=== PATIENT | male | born 1995 | race Caucasian/White ===

== ENCOUNTER 2016-06-12 03:54 | Emergency (ER) | payer MEDICAID, OTHER ==
[~2016-06-12] VITALS: Ht 165.1 cm; Wt 61.2 kg
--- NOTE | 2016-06-12 03:54 | NUR ---
Patient was BIBA and taken to bed 08 via gurney per EMS.
[2016-06-12 04:03] VITALS: BP 121/74
--- NOTE | 2016-06-12 04:21 | NUR ---
20 Y/O BIBA W/C/O Abd pain, epigastric pain, n/v since 1999 after eating [employer] food. NO S/S OF DISTRESS NOTED AT THE MOMENT. PT ON MONITOR, WILL CONT TO MONITOR. ER MADE AWARE.
--- NOTE | 2016-06-12 04:35 | NUR ---
Dr. Emery evaluating patient at bedside.
[2016-06-12] MEDS ORDERED: DICYCLOMINE HCL LIQUID 20 MG, ALUMINUM HYD/MAG/SIMETHICONE 30 ML, LIDOCAINE VISCOUS 2% ... PO ONE (04:50)
[2016-06-12] MEDS ORDERED: ONDANSETRON 4 MG/2 ML VIAL IVP ONE (04:50)
[2016-06-12] MEDS ORDERED: NACL 0.9% 1,000 ML IV ONE (04:50)
[2016-06-12] MEDS ORDERED: LIDOCAINE VISCOUS 2% 20 ML UDC ONE ×2 (04:55→04:57)
[2016-06-12 05:58] VITALS: BP 104/57
--- NOTE | 2016-06-12 05:58 | NUR ---
Patient discharged with v/s stable. Written and verbal after care instructions given and explained. Patient alert, oriented and verbalized understanding of instructions. Ambulatory with steady gait. All questions addressed prior to discharge. ID band removed. Patient advised to follow up with PMD NEXT WK OR RETURN TO ER IF CONDITION WORSENS. Rx of ZOFRAN AND MYLANTA given. Patient educated on indication of medication including possible reaction and side effects. Opportunity to ask questions provided and answered.
== END 2016-06-12 05:58 | disposition home or self-care (01) ==
LOC: MED 03:54
DX: R10.10 Upper abdominal pain, unspecified (principal); R11.2 Nausea with vomiting, unspecified
CPT/HCPCS: 36415; 80053; 83690; 96361; 96374; 99284; J2405; J7030

== ENCOUNTER 2017-06-29 16:18 | Emergency (ER) | payer OTHER ==
[~2017-06-29] VITALS: Ht 165.1 cm; Wt 58.5 kg
[2017-06-29 16:30] VITALS: BP 111/69
[2017-06-29 17:35] VITALS: BP 110/67
== END 2017-06-29 17:35 | disposition home or self-care (01) ==
LOC: MED 16:18
DX: B34.9 Viral infection, unspecified (principal); F17.200 Nicotine dependence, unspecified, uncomplicated
CPT/HCPCS: 99283

== ENCOUNTER 2017-09-10 17:33 | Emergency (ER) | payer OTHER ==
[~2017-09-10] VITALS: Ht 152.4 cm; Wt 56.7 kg
[2017-09-10 17:42] VITALS: BP 134/81
--- NOTE | 2017-09-10 17:49 | NUR ---
PT TAKEN TO BED 3.
--- NOTE | 2017-09-10 17:50 | NUR ---
REPORT GIVEN TO DEVIKA PITTS.
--- NOTE | 2017-09-10 18:00 | NUR ---
PT. CAME INTO THE ED W/ ABD PAIN SINCE YESTERDAY. PT. STATES " I STARTED HAVING STOMACH PAIN SINCE YESTERDAY, I THREW UP ONCE AND I HAVE BEEN NAUSEOUS, IT COMES AND GOES". PT. IS AAOX4, RR EVEN AND UNLABORED, PT. DENIES SOB, DENIES FEVER AND CHILLS, DENIES DIAHRRHEA. PT. HAS 8/10 PAIN IN EPIGASTRIC AREA THAT IS SHARP AND RADIATES ALL OVER ABD. ABD IS FLAT AND SOFT. ER MD NOTIFIED. WILL CONTINUE TO MONITOR.
[2017-09-10] MEDS ORDERED: NACL 0.9% 1,000 ML IV SCH (18:28)
[2017-09-10] MEDS ORDERED: MORPHINE SULFATE 4 MG/ML SYR IVP ONE (18:30)
[2017-09-10 18:43] LABS: BASOPHILS % (AUTO) 0.2 % (0.0-2.0); EOSINOPHILS % (AUTO) 0.1 % (0.0-4.0); HEMATOCRIT 46.9 % (36-52); HEMOGLOBIN 15.8 g/dL (12.0-18.0); LYMPHOCYTES # (AUTO) 0.5 K/uL (2.0-11.5); LYMPHOCYTES % (AUTO) 6.3 % (20.5-51.1); MEAN CORPUSCULAR HEMOGLOBIN 29 pg (27-31); MEAN CORPUSCULAR HGB CONC 34 g/dL (33-37); MEAN CORPUSCULAR VOLUME 86.2 fL (80-94); MONOCYTES # (AUTO) 0.7 K/uL (0.8-1.0); MONOCYTES % (AUTO) 8.8 % (1.7-9.3); NEUTROPHILS # (AUTO) 6.4 K/uL (1.8-7.7); NEUTROPHILS % (AUTO) 84.6 % (42.2-75.2); PLATELET COUNT (AUTO) 190 K/uL (140-450); RED BLOOD CELL COUNT(AUTO) 5.44 MIL/uL (4.20-6.10); RED CELL DISTRIBUTION WIDTH 12.4 % (11.6-13.7); WHITE BLOOD COUNT (AUTO) 7.6 K/uL (4.8-10.8)
[2017-09-10 18:57] LABS: ANION GAP 1.9 (8-16); CARBON DIOXIDE 38.8 mmol/L (21-32); POTASSIUM 3.7 mmol/L (3.5-5.1)
[2017-09-10 19:03] LABS: ALBUMIN 4.5 g/dL (3.4-5.0); TOTAL BILIRUBIN 0.9 mg/dL (0.0-1.0)
--- NOTE | 2017-09-10 19:12 | NUR ---
Pt report given to GISSELLE KULKARNI. Transfer of care at this time.
--- NOTE | 2017-09-10 19:35 | NUR ---
PT RESTING COMFORTABLY IN BED, PT REPORTS DECREASED PAIN 2/10 AT THIS TIME, DENIES N/V. ALL NEEDS MET AT THIS TIME.
--- NOTE | 2017-09-10 20:35 | NUR ---
Dr. Aguirre evaluating patient at bedside.
[2017-09-10 20:59] LABS: APPEARANCE,URINE CLEAR (CLEAR); BLOOD, URINE NEGATIVE (NEGATIVE); COLOR,URINE YELLOW (YELLOW); LEUKOCYTE ESTERASE ,URINE NEGATIVE (NEGATIVE); NITRITE, URINE NEGATIVE (NEGATIVE); PH,URINE 5.5 (5.0-9.0); UGLUCOSE NEGATIVE (NEGATIVE)
[2017-09-10 21:01] LABS: BILIRUBIN,URINE NEGATIVE (NEGATIVE)
[2017-09-10 21:47] VITALS: BP 102/66
--- NOTE | 2017-09-10 21:47 | NUR ---
Patient discharged with v/s stable. Written and verbal after care instructions given and explained. Patient alert, oriented and verbalized understanding of instructions. Ambulatory with steady gait. All questions addressed prior to discharge. ID band removed. Patient advised to follow up with PMD. Rx of REGLAN, OMEPRAZOLE given. Patient educated on indication of medication including possible reaction and side effects. Opportunity to ask questions provided and answered.
== END 2017-09-10 21:47 | disposition home or self-care (01) ==
LOC: MED 17:33
DX: K29.70 Gastritis, unspecified, without bleeding (principal); R63.0 Anorexia
CPT/HCPCS: 36415; 74176; 80053; 81003; 82150; 83690; 85025; 96361; 96374; 99285; J2270

== ENCOUNTER 2018-07-30 09:40 | Emergency (ER) | payer OTHER ==
[~2018-07-30] VITALS: Ht 167.6 cm; Wt 65.8 kg
[2018-07-30 09:51] VITALS: BP 150/73
--- NOTE | 2018-07-30 09:55 | NUR ---
PATIENT PRESENTS TO ED WITH C/O HEADACHE/SORETHROAT/CHILLS WITH NO FEVER. PT ADMITS TO SMOKING MARIJUANA DAILY. PT TOOK IBUPROFEN LAST NIGHT. PAIN 8/10 PT DENIES N/V/D; SKIN IS PINK/WARM/DRY; AAOX4 WITH EVEN AND STEADY GAIT; LUNGS CTAB. PATIENT POSITIONED FOR COMFORT; HOB ELEVATED; BEDRAILS UP X2; BED DOWN. ER MD TO EVALUATE PT.
--- NOTE | 2018-07-30 10:13 | NUR ---
DR GREEN AT BEDSIDE FOR PT EVALUATION
--- NOTE | 2018-07-30 10:17 | NUR ---
Domingo emerson in [facility], [place] - 07/30/18 at [address] GREEN AT [facility] FOR PT EVALUATION
[2018-07-30] MEDS ORDERED: KETOROLAC 30 MG/ML VIAL IM ONE (10:20)
--- NOTE | 2018-07-30 10:21 | NUR ---
STREP SWAB COLLECTED AND HANDED TO LAB
--- NOTE | 2018-07-30 10:23 | NUR ---
PT GIVEN IM MEDICATION ORDERED. IM MEDICATION GIVEN TO R DELTOID. PT TOLERATED WELL.
[2018-07-30 11:13] VITALS: BP 117/68
--- NOTE | 2018-07-30 11:13 | NUR ---
Patient discharged with v/s stable. Written and verbal after care instructions given and explained. Patient alert, oriented and verbalized understanding of instructions. Ambulatory with steady gait. All questions addressed prior to discharge. ID band removed. Patient advised to follow up with PMD. Rx of Naprosyn, Tylenol with Codeine no. 3 given. Patient educated on indication of medication including possible reaction and side effects. Opportunity to ask questions provided and answered.
== END 2018-07-30 11:13 | disposition home or self-care (01) ==
LOC: MED 09:40
DX: J02.8 Acute pharyngitis due to other specified organisms (principal); B97.89 Other viral agents as the cause of diseases classified elsewhere; E11.9 Type 2 diabetes mellitus without complications; F17.200 Nicotine dependence, unspecified, uncomplicated
CPT/HCPCS: 87081; 96372; 99283; J1885

== ENCOUNTER 2020-11-09 13:55 | Emergency (ER) | payer OTHER, SELFPAY ==
[~2020-11-09] VITALS: Ht 167.6 cm; Wt 61.2 kg
[2020-11-09 14:10] VITALS: BP 119/68
--- NOTE | 2020-11-09 15:00 | NUR ---
CAME OUT TO COVID TO COVID SWAB THE PATIENT AND NO ONE IN THE TENT. PT LEFT WITHOUT DISCHARGE INSTRUCTIONS OR WITHOUT BEING SWABBED. DR. GLOVER MADE AWARE.
--- NOTE | 2020-11-09 15:00 | NUR ---
ELOPED FROM FACILITY. LEFT WITH OUT DISCHARGE INSTRUCTIONS.
== END 2020-11-09 15:00 | disposition left against medical advice (07) ==
LOC: MED 13:55
DX: R05 Cough (principal); Z20.822 Contact with and (suspected) exposure to COVID-19; E11.9 Type 2 diabetes mellitus without complications
CPT/HCPCS: 99281

== ENCOUNTER 2022-06-11 03:35 | Emergency (ER) | payer OTHER ==
[~2022-06-11] VITALS: Ht 165.1 cm; Wt 62.6 kg
[2022-06-11 03:48] VITALS: BP 134/80
--- NOTE | 2022-06-11 03:51 | NUR ---
TO BED AMBULATORY
--- NOTE | 2022-06-11 03:58 | NUR ---
26YR OLD MALE BIB SELF C/O MID GASTRIC ABD PAIN. PAIN STARTED 2AM. PAIN LEVEL 8/10 SHARP. DENIES CP SOB V/N/D. PT IS A&OX4. HX OF ACID REFLEX. SKIN IS WARM AND DRY. NKDA NO MED HX
[2022-06-11] MEDS ORDERED: ALUMINUM HYD/MAG/SIMETHICONE 30 ML UDC PO ONE (04:05)
[2022-06-11] MEDS ORDERED: FAMOTIDINE 20 MG TAB PO ONE (04:05)
[2022-06-11] MEDS ORDERED: FAMO-90 PO (04:52)
== END 2022-06-11 04:55 | disposition home or self-care (01) ==
LOC: MED 03:35
DX: K21.9 Gastro-esophageal reflux disease without esophagitis (principal); Z79.899 Other long term (current) drug therapy
CPT/HCPCS: 99283

== ENCOUNTER 2022-07-13 09:34 | Emergency (ER) | payer OTHER ==
[~2022-07-13] VITALS: Ht 167.6 cm; Wt 59.0 kg
[~2022-07-13 09:34] MED LIST: FAMO-90 PO
[2022-07-13 09:40] VITALS: BP 148/74
[2022-07-13] MEDS ORDERED: KETOROLAC 30 MG/ML VIAL IM ONE (12:10)
[2022-07-13] MEDS ORDERED: NAPR-54 PO (12:57)
--- NOTE | 2022-07-13 13:29 | NUR ---
toradol relieved pain now 04/23, pt given aci for right sprained ankle, rx naproxyen explained, questions answered. steady gait home. with return demo of crutches
[2022-07-13 13:31] VITALS: BP 110/62
== END 2022-07-13 13:31 | disposition home or self-care (01) ==
LOC: MED 09:34
DX: S93.602A Unspecified sprain of left foot, initial encounter (principal); E11.9 Type 2 diabetes mellitus without complications; K21.9 Gastro-esophageal reflux disease without esophagitis; Z79.899 Other long term (current) drug therapy; X58.XXXA Exposure to other specified factors, initial encounter; Y93.89 Activity, other specified; Y92.89 Other specified places as the place of occurrence of the external cause; Y99.8 Other external cause status
CPT/HCPCS: 73630; 96372; 99283; J1885

== ENCOUNTER 2022-07-16 18:44 | Emergency (ER) | payer OTHER ==
[~2022-07-16] VITALS: Ht 167.6 cm; Wt 59.0 kg
[~2022-07-16 18:44] MED LIST changes: +NAPR-54 PO
[2022-07-16 19:54] VITALS: BP 113/80
[2022-07-16] MEDS ORDERED: HYDROcodone/APAP 5/325 MG 1 TAB TAB PO ONE (22:25)
--- NOTE | 2022-07-16 22:26 | NUR ---
PATIENT LEFT WITHOUT BEING SEEN BY DR. Coe. NO FURTHER CARE PROVIDED FOR PATIENT.
--- NOTE | 2022-07-16 22:26 | NUR ---
Called no show in lobby or outside.
== END 2022-07-16 22:26 | disposition left against medical advice (07) ==
LOC: MED 18:44
DX: J02.9 Acute pharyngitis, unspecified (principal); Z53.21 Procedure and treatment not carried out due to patient leaving prior to being seen by health care provider
CPT/HCPCS: 99281

== ENCOUNTER 2022-12-17 10:34 | Emergency (ER) | payer OTHER ==
[~2022-12-17] VITALS: Ht 167.6 cm; Wt 63.5 kg
[2022-12-17 10:53] VITALS: BP 125/73; PULSE 88; RESP 18; TEMP 99; O2SAT 98
[2022-12-17] MEDS ORDERED: ACET-10509 PO (11:24)
[2022-12-17] MEDS ORDERED: IBUP-2213 PO (11:24)
[2022-12-17] MEDS ORDERED: ONDA-188 PO (11:24)
[2022-12-17] MEDS ORDERED: ONDANSETRON 4 MG ODT PO ONE (11:25)
[2022-12-17 11:40] VITALS: BP 125/73; PULSE 88; RESP 18; TEMP 99; O2SAT 98
[2022-12-17 13:00] LABS: FLU A ANTIGEN negative (NEGATIVE)
[2022-12-17 13:01] LABS: FLU B ANTIGEN NEGATIVE (NEGATIVE)
== END 2022-12-17 11:39 | disposition home or self-care (01) ==
LOC: MED 10:34
DX: B34.9 Viral infection, unspecified (principal); M79.10 Myalgia, unspecified site; R68.83 Chills (without fever); E11.9 Type 2 diabetes mellitus without complications; K21.9 Gastro-esophageal reflux disease without esophagitis; Z79.899 Other long term (current) drug therapy; Z20.822 Contact with and (suspected) exposure to COVID-19
CPT/HCPCS: 87426; 87804; 99283; Q0162

== ENCOUNTER 2023-06-26 09:33 | Emergency (ER) | payer OTHER ==
[~2023-06-26] VITALS: Ht 167.6 cm; Wt 61.2 kg
[~2023-06-26 09:33] MED LIST changes: +ACET-10509 PO; +IBUP-2213 PO; +ONDA-188 PO
[2023-06-26 09:41] VITALS: BP 121/78; PULSE 77; RESP 19; TEMP 98.3; O2SAT 99
[2023-06-26] MEDS ORDERED: KETOROLAC 30 MG/ML VIAL ONE (10:16)
[2023-06-26 10:24] LABS: BASOPHILS % (AUTO) 0.2 % (0.0-2.0); EOSINOPHILS % (AUTO) 0.1 % (0.0-4.0); HEMATOCRIT 45.1 % (36-52); HEMOGLOBIN 15.7 g/dL (12.0-18.0); LYMPHOCYTES # (AUTO) 1.1 K/uL (2.0-11.5); MEAN CORPUSCULAR HEMOGLOBIN 30 pg (27-31); MEAN CORPUSCULAR HGB CONC 35 g/dL (33-37); MEAN CORPUSCULAR VOLUME 86.1 fL (80-94); MONOCYTES # (AUTO) 1.3 K/uL (0.8-1.0); MONOCYTES % (AUTO) 8.6 % (1.7-9.3); NEUTROPHILS # (AUTO) 12.4 K/uL (1.8-7.7); NEUTROPHILS % (AUTO) 83.8 % (42.2-75.2); PLATELET COUNT (AUTO) 238 K/uL (140-450); RED BLOOD CELL COUNT(AUTO) 5.23 MIL/uL (4.20-6.10); RED CELL DISTRIBUTION WIDTH 12.9 % (11.6-13.7); WHITE BLOOD COUNT (AUTO) 14.8 K/uL (4.8-10.8)
[2023-06-26] MEDS: NACL 0.9% 1,000 ML IV ONE (10:30)
[2023-06-26] MEDS: ONDANSETRON 4 MG/2 ML VIAL IVP ONE (10:33)
[2023-06-26 10:34] LABS: ANION GAP 11.1 (8-16); CALCIUM 9.6 mg/dL (8.5-10.1); CARBON DIOXIDE 30.1 mmol/L (21-32); LYMPHOCYTES % (AUTO) 7.3 % (20.5-51.1); POTASSIUM 4.2 mmol/L (3.5-5.1)
[2023-06-26 10:38] LABS: ALBUMIN 4.1 g/dL (3.4-5.0); BILIRUBIN,DIRECT 0.2 mg/dL (0.0-0.3); TOTAL BILIRUBIN 0.7 mg/dL (0.0-1.0); TOTAL PROTEIN, SERUM 8.1 g/dL (6.4-8.2)
[2023-06-26] MEDS: KETOROLAC 30 MG/ML VIAL IVP ONE (10:38)
[2023-06-26] MEDS: CIPROFLOXACIN 250 MG TAB PO ONE (10:42)
[2023-06-26 11:30] LABS: FLU A ANTIGEN negative (NEGATIVE); FLU B ANTIGEN negative (NEGATIVE)
[2023-06-26] MEDS ORDERED: IBUP-2213 PO (11:44)
[2023-06-26] MEDS ORDERED: ONDA-188 SL (11:44)
[2023-06-26 12:09] VITALS: BP 101/69; PULSE 77; RESP 20; TEMP 97.7; O2SAT 100
== END 2023-06-26 12:08 | disposition home or self-care (01) ==
LOC: MED 09:33
DX: B34.9 Viral infection, unspecified (principal); Z20.822 Contact with and (suspected) exposure to COVID-19; R51.9 Headache, unspecified; R11.2 Nausea with vomiting, unspecified; E11.9 Type 2 diabetes mellitus without complications; K21.9 Gastro-esophageal reflux disease without esophagitis; Z79.4 Long term (current) use of insulin; Z79.899 Other long term (current) drug therapy
CPT/HCPCS: 36415; 80048; 80076; 83690; 85025; 87040; 87426; 87804; 96361; 96374; 96375; 99284; J1885; J2405; J7030